=== PATIENT | female | born 1995 | race Caucasian/White ===

== ENCOUNTER → 2017-01-22 | Outpatient (CLI) | payer OTHER ==
--- NOTE | 2017-01-22 14:09 | REP ---
TRIPLE PHASE BONE SCAN OF THE PELVIS AND HIPS: Following the intravenous administration of 21.4 millicuries technetium 99M MDP, the patient's pelvis and hips are imaged in the flow phase in the anterior and posterior projections. No abnormal blood flow is seen. Immediate blood pool and 2.5 hour delayed images are performed of the pelvis and hips in the anterior, posterior, both anterior and posterior oblique and both lateral projections. There is no abnormal blood pooling and no abnormal delayed activity involving the osseous structures of the pelvis or hips. Bladder activity is seen. IMPRESSION: Negative triple phase bone scan of the pelvis and hips. Signed by Sherwin Rob MD 01/22/2017 04:53 P
== END ==
LOC: M RAD 10:00
PROVIDERS: ATTEND Family Medicine
DX: M25.551 Pain in right hip (principal); M25.552 Pain in left hip

== ENCOUNTER → 2017-08-07 | Outpatient (CLI) | payer BC, OTHER ==
[~2017-08-07] MED LIST: CONRAY-43 43% 50ML VIAL (Q9960) As Ordered ONE; PROHANCE 279.3MG/ML 5ML VIAL (A9576) As Ordered ONE
--- NOTE | 2017-08-07 10:39 | REP ---
MR ARTHROGRAM, RIGHT HIP: TECHNIQUE: Coronal T1, STIR through the pelvis, post arthrogram axial T1 fat sat, T2 fat sat, coronal T1 fat sat, T2 fat sat, sagittal T1 fat sat, axial oblique T1 fat sat right hip. Visualized osseous structures demonstrate normal marrow signal. There is no bone marrow edema or occult fracture. There is no evidence of avascular necrosis. There is an anterior labral tear of the right hip. No paralabral cyst is seen. Surrounding soft tissue structures appear unremarkable. A cyst is seen in the left vaginal wall measuring 2.1 cm in diameter. Mild free fluid in the pelvis is likely physiologic in nature. The ovaries appear normal. IMPRESSION: Anterior labral tear of the right hip. Signed by Sherwin Rob MD 08/10/2017 09:47 A
--- NOTE | 2017-08-10 10:09 | REP ---
Right hip arthrogram The procedure was performed under the direction supervision of Dr. Rob. The benefits and risks including but not limited to pain, infection, bleeding and anaphylaxis were explained to the patient and informed consent was obtained. The right femoral neck was localized using fluoroscopic guidance. Skin was prepped and draped in a sterile fashion. 1% lidocaine was used as a local anesthetic. Using fluoroscopic guidance a 22 gauge spinal needle was inserted and advanced to the femoral neck. 0.5 ml of Conray 43 was injected to verify placement. 11 ml of a solution containing 20 ml of sterile saline and 0.15 ml of ProHance was injected into the joint. The needle was removed and the patient was taken to MRI for postprocedural imaging. The the patient tolerated the procedure well and there were no immediate complications. Less than 6 seconds of fluoro time was utilized for this procedure. Reviewed by MARIBEL Hernandez 08/07/2017 12:29 PSigned by Sherwin Rob MD 08/10/2017 09:58 A
== END ==
LOC: M RADPRO 07:45
PROVIDERS: ATTEND Physical Therapist
DX: M24.151 Other articular cartilage disorders, right hip (principal); N89.8 Other specified noninflammatory disorders of vagina
CPT/HCPCS: 27093; 73723; 77002; A9576; Q9960

== ENCOUNTER → 2017-10-30 | Outpatient (CLI) | payer OTHER, BC ==
[~2017-10-30] MED LIST changes: +CONRAY-43 43% 50ML VIAL (Q9960) As Ordered; -CONRAY-43 43% 50ML VIAL (Q9960) As Ordered ONE; +LIDOCAINE 1% MDV 20ML VIAL As Ordered; -PROHANCE 279.3MG/ML 5ML VIAL (A9576) As Ordered ONE; +TRIAMCINOLONE ACETONIDE SUSP 40 MG/ML VIAL (J3301) As Ordered
== END ==
LOC: M RADPRO 08:51
DX: M25.551 Pain in right hip (principal)
CPT/HCPCS: 20610

== ENCOUNTER 2017-11-13 07:22 | Emergency (ER) | payer OTHER ==
[2017-11-13] MEDS: ONDANSETRON 4 MG ORAL DISINTEGRATING TAB (S0181) PO (07:45)
== END 2017-11-13 08:42 | disposition home or self-care (01) ==
LOC: M ED 07:22
DX: R10.84 Generalized abdominal pain (principal); R11.2 Nausea with vomiting, unspecified; F17.200 Nicotine dependence, unspecified, uncomplicated
CPT/HCPCS: 99283